=== PATIENT | female | born 1970 | race Caucasian/White ===

== ENCOUNTER 2019-08-12 19:32 | Emergency (ER) | payer OTHER ==
[~2019-08-12 19:32] MED LIST: Magnevist 469MG/ML 20 ML VIAL ONE
[2019-08-12] MEDS ORDERED: Ketorolac Tromethamine 30 MG/ML VIAL ONE (20:11)
--- NOTE | 2019-08-12 22:51 | MRI ---
MRI Lumbar Spine with and without IVcontrast: HISTORY: Low back pain with pain radiating down left leg to the foot with associated weakness, numbness, and t ingling. History of prior back surgery. Recent fall 4-5 days ago. COMPARISON: None FINDINGS: A tiny subcentimeter nonenhancing focus is seen within the anterior aspect midportion right kidney li dominik due to tiny cyst. The remaining visualized retroperitoneal structures demonstrate a normal MRI appearance. Conus medullaris is normal in morphology and terminates at the L1 level. Mild endplate degenerative changes are seen at the L5-S1 level. Small subcentimeter focus of increase d T1 and T2-weighted signal intensity is seen in the L4 vertebral body likely due to small hemangioma versus focal area of fat. Similar finding is seen in the posterior aspect L3 vertebral bod y. L1-2: There is a minimal disc osteophyte complex, but the central spinal canal and neural foramina ar e patent. L2-3: Minimal disc osteophyte complex is present with facet degenerative changes. Central spinal jason l and neural foramina are patent L3-4: Facet hypertrophic changes are noted. There is a mild disc osteophyte complex. Findings result in slight effacement of ventral aspect of the thecal sac. Neural foramina are patent. L4-5: There is a broad-based disc osteophyte complex with an annular tear involving the left posterol ateral margin of the intervertebral disc. Facet hypertrophic changes are present. The right neural foramen is patent, but there is mild left-sided neural foraminal narrowing. No significant central ca nal narrowing is present. L5-S1: Left laminotomy defect is seen at this level. There is a left paracentral disc extrusion measu ring 11 mm in AP dimensions. This results in mass effect on the left anterolateral aspect of the thecal sac and contacts and displaces the traversing left S1 nerve root. The right neural foramen is patent, but there is mild left-sided neural foraminal narrowing. Mild facet degenerative changes are present at this level. No abnormal areas of enhancement are seen after the administration of intravenous contrast. IMPRESSION: Left paracentral disc extrusion at the L5-S1 level resulting in mass effect on the left anterolateral aspect of the thecal sac with posterior displacement of the traversing left S1 nerve root. Although prior study is not available for comparison, findings are likely related to recurrent disc h erniation at this level. This is at site of prior left laminotomy defect.
[2019-08-12 22:56] LABS: #Basophils 0.1 thou/uL (0.0-0.2); #Eosinphils 0.1 thou/uL (0.0-0.7); #Lymphocytes 3.3 thou/uL (1.20-3.40); #Neutrophils 8.1 thou/uL (1.40-6.50); %Basophils 0.4 % (0.0-1.0); %Eosinophils 0.5 % (0.0-10.0); %Lymphocytes 26.6 % (21.0-51.0); %Monocytes 7.8 % (0.0-10.0); %Neutrophils 64.7 % (42.0-75.0); Hemoglobin 12.8 g/dL (12.0-16.0); Mean Corpuscular HGB CONC 33.5 g/dL (32.0-36.0); Mean Corpuscular Hemoglobin 30.7 pg (27.0-31.0); Mean Corpuscular Volume 91.8 fL (78.0-98.0); Mean Platelet Volume 7.6 fL (7.4-10.4); Platelet Count 338 thou/uL (130-400); RBC Distribution Width 12.5 % (11.5-14.5); Red Blood Cell (RBC) Count 4.15 mill/uL (4.20-5.40); White Blood Cell (WBC) Count 12.6 thou/uL (4.8-10.8)
[2019-08-12 23:32] LABS: ALT (SGPT) 13 U/L (8-55); AST (SGOT) 12 U/L (5-34); Albumin 3.8 g/dL (3.5-5.0); Alkaline Phosphatase 53 U/L (40-110); Anion Gap 12 mmol/L (10-20); BUN (Urea Nitrogen) 21 mg/dL (7.0-18.7); Bilirubin, Total 0.2 mg/dL (0.2-1.2); CRP (Inflammatory) Less than 0.50 mg/dL (= or < 0.5); Calc. Creatinine Clearance 0 mL/min (70-130); Calcium 8.8 mg/dL (7.8-10.44); Carbon Dioxide 23 mmol/L (22-29); Chloride 109 mmol/L (98-107); Estimated GFR-MDRD 83; Globulin 2.5 g/dL (2.4-3.5); Glucose 95 mg/dL (70-105); Protein, Total 6.3 g/dL (6.0-8.3); Sodium 141 mmol/L (136-145)
== END 2019-08-12 23:15 | disposition home or self-care (01) ==
LOC: ERS 19:32
DX: M54.5 Low back pain (principal); G43.909 Migraine, unspecified, not intractable, without status migrainosus
CPT/HCPCS: 36415; 72158; 80053; 85025; 85652; 86140; 96372; A9579; J1885